=== PATIENT | female | born 1955 | race Two or more races ===

== ENCOUNTER 2022-05-14 19:08 | Inpatient (IN) | payer MEDICAID, OTHER ==
[~2022-05-14] VITALS: Ht 162.6 cm; Wt 68.9 kg
[2022-05-14 20:33] LABS: Basophils # (auto) 0.1 10 ^3/uL (0-0.2); Basophils % (auto) 0.6 % (0.0-2.0); Eosinophils # (auto) 0 10 ^3/uL (0-0.8); Eosinophils % (auto) 0.3 % (0.0-7.0); Hematocrit 43.3 % (36.0-46.0); Hemoglobin 14.5 g/dL (12.2-16.2); Lymphocytes # (auto) 1.5 10 ^3/uL (0.4-5.4); Lymphocytes % (auto) 16.5 % (10.0-50.0); Mean Corpuscular Hemoglobin 31.5 pg (28.0-32.0); Mean Corpuscular Hgb Conc. 33.5 g/dL (32.0-36.0); Mean Corpuscular Volume 93.9 fL (80.0-100.0); Monocytes # (auto) 0.5 10 ^3/uL (0-1.3); Monocytes % (auto) 5.2 % (0.0-12.0); Neutrophils % (auto) 77.4 % (37.0-80.0); Nucleated Red Blood Cells % 0.1 %; Red Blood Cells 4.62 10^6/uL (4.0-5.20); Red Cell Distribution Width 13.5 % (11.8-14.3); White Blood Cell 9.1 10^3/uL (4.4-10.8)
[2022-05-14 20:55] LABS: Albumin 3.9 g/dL (3.4-5.0); BUN/Creatinine Ratio 22.6; Calcium 9.2 mg/dL (8.5-10.1); Magnesium 2.4 mg/dL (1.6-2.6); Potassium 4.1 mmol/L (3.5-5.1)
[2022-05-14 20:58] LABS: Bilirubin, Total 0.4 mg/dL (0.2-1.0)
[2022-05-14] MEDS ORDERED: ASPirin 81 mg TAB PO ONE (22:15)
[2022-05-14] MEDS ORDERED: LISINOPRIL 10 MG TAB PO ONE (23:30)
[2022-05-14] MEDS ORDERED: MORPHINE SULFATE INJ 2 MG/ml SYRG IV PRN (23:30)
[2022-05-14] MEDS ORDERED: TEMAZEPAM 15 MG CAP PO PRN (23:30)
[2022-05-14] MEDS ORDERED: NITROGLYCERIN 0.4 MG SL TAB SL PRN (23:30)
[2022-05-14] MEDS ORDERED: ONDANSETRON HCL 4 MG/2 ML VIAL IV PRN (23:30)
[2022-05-14] MEDS ORDERED: ACETAMINOPHEN 325 MG TAB PO PRN (23:30)
[2022-05-14] MEDS ORDERED: ENOXAPARIN SOD 100 MG/1 ML SYRINGE SC ONE (23:30)
[2022-05-15 06:51] LABS: Basophils # (auto) 0.1 10 ^3/uL (0-0.2); Basophils % (auto) 0.7 % (0.0-2.0); Eosinophils # (auto) 0.1 10 ^3/uL (0-0.8); Eosinophils % (auto) 1.3 % (0.0-7.0); Hematocrit 41.5 % (36.0-46.0); Hemoglobin 14.2 g/dL (12.2-16.2); Lymphocytes # (auto) 2.4 10 ^3/uL (0.4-5.4); Lymphocytes % (auto) 33.5 % (10.0-50.0); Mean Corpuscular Hemoglobin 32.3 pg (28.0-32.0); Mean Corpuscular Hgb Conc. 34.2 g/dL (32.0-36.0); Mean Corpuscular Volume 94.4 fL (80.0-100.0); Monocytes # (auto) 0.5 10 ^3/uL (0-1.3); Monocytes % (auto) 6.6 % (0.0-12.0); Neutrophils # (auto) 4.2 10 ^3/uL (1.6-8.6); Neutrophils % (auto) 57.9 % (37.0-80.0); Nucleated Red Blood Cells % 0.1 %; Red Cell Distribution Width 13.7 % (11.8-14.3); White Blood Cell 7.3 10^3/uL (4.4-10.8)
[2022-05-15 07:07] LABS: Calcium 9.6 mg/dL (8.5-10.1); Potassium 3.8 mmol/L (3.5-5.1)
[2022-05-15] MEDS ORDERED: ENOXAPARIN SOD 40 MG/0.4 ML SYRINGE SC SCH (10:00)
[2022-05-15] MEDS ORDERED: CARVEDILOL 12.5 MG TAB PO ONE (11:00)
[2022-05-15] MEDS: LISINOPRIL 10 MG TAB PO SCH (11:05)
[2022-05-15] MEDS: ASPirin 81 mg TAB PO SCH (11:05)
[2022-05-15] MEDS: PANTOPRAZOLE 40 MG TAB PO SCH (11:05)
[2022-05-15] MEDS ORDERED: NICOTINE 14 MG/24HR TOPICAL PATCH TD ONE (11:15)
[2022-05-15] MEDS ORDERED: ENOXAPARIN SOD 30 MG/0.3 ML SYRINGE SC ONE (11:30)
[2022-05-15 11:33] LABS: Cholesterol 164 mg/dL (< 200); HDL Cholesterol 48 mg/dL (40-59); LDL Cholesterol 99 mg/dL (< 100); Triglycerides 133 mg/dL (< 150)
[2022-05-15 16:55] VITALS: BP 143/77
[2022-05-15 17:02] VITALS: BP 132/94
[2022-05-15 22:00] VITALS: BP 145/91
[2022-05-15] MEDS ORDERED: ATORVASTATIN 20 MG TAB PO SCH (22:00)
[2022-05-15] MEDS: ATORVASTATIN 20 MG TAB PO SCH (22:07)
[2022-05-15] MEDS: ENOXAPARIN SOD 80 MG/0.8ML SYRINGE SC SCH (22:08)
[2022-05-15] MEDS: CARVEDILOL 12.5 MG TAB PO SCH (22:08)
[2022-05-16] VITALS (9 sets, daily range): BP systolic 121–138; BP diastolic 59–75
[2022-05-16 06:25] LABS: BUN/Creatinine Ratio 15.1; Calcium 9.9 mg/dL (8.5-10.1); Potassium 4.1 mmol/L (3.5-5.1)
[2022-05-16 06:44] LABS: Basophils # (auto) 0.1 10 ^3/uL (0-0.2); Basophils % (auto) 1.1 % (0.0-2.0); Eosinophils # (auto) 0.1 10 ^3/uL (0-0.8); Eosinophils % (auto) 1.2 % (0.0-7.0); Hematocrit 44.7 % (36.0-46.0); Hemoglobin 15.2 g/dL (12.2-16.2); Lymphocytes # (auto) 2.6 10 ^3/uL (0.4-5.4); Lymphocytes % (auto) 32.4 % (10.0-50.0); Mean Corpuscular Hemoglobin 32.1 pg (28.0-32.0); Mean Corpuscular Volume 94.5 fL (80.0-100.0); Monocytes # (auto) 0.6 10 ^3/uL (0-1.3); Monocytes % (auto) 6.9 % (0.0-12.0); Neutrophils # (auto) 4.7 10 ^3/uL (1.6-8.6); Neutrophils % (auto) 58.4 % (37.0-80.0); Nucleated Red Blood Cells % 0.2 %; Red Blood Cells 4.73 10^6/uL (4.0-5.20); Red Cell Distribution Width 13.5 % (11.8-14.3); White Blood Cell 8.1 10^3/uL (4.4-10.8)
[2022-05-16 07:23] LABS: INR 0.99 (0.9-1.15); Partial Thromboplastin Time 32.2 sec (23.6-33.0)
[2022-05-16] MEDS: ASPirin 81 mg TAB PO SCH (09:18)
[2022-05-16] MEDS: LISINOPRIL 10 MG TAB PO SCH (09:20)
[2022-05-16] MEDS: CARVEDILOL 12.5 MG TAB PO SCH ×2 (09:20→22:45)
[2022-05-16] MEDS: PANTOPRAZOLE 40 MG TAB PO SCH (09:21)
[2022-05-16] MEDS: NICOTINE 14 MG/24HR TOPICAL PATCH TD SCH (09:22)
[2022-05-16] MEDS: ENOXAPARIN SOD 80 MG/0.8ML SYRINGE SC SCH (09:24)
[2022-05-16] MEDS ORDERED: VERAPAMIL 2.5MG/ML INJ 2ML VIAL IV ONE (11:01)
[2022-05-16] MEDS ORDERED: fentaNYL CITRATE 100 MCG/2 ML VL ONE (11:01)
[2022-05-16] MEDS ORDERED: ANGIOMAX 250 MG VIAL IV ONE (11:01)
[2022-05-16] MEDS ORDERED: HEPARIN SODIUM (PORCINE) 5000 UNITS/ML 1ML VIAL ONE (11:01)
[2022-05-16] MEDS ORDERED: LIDOCAINE 2%HCL (LOCAL ANESTH.) INJ 10ml MDV ONE (11:02)
[2022-05-16] MEDS ORDERED: SODIUM CHL 0.9% 50 ML ONE (11:02)
[2022-05-16] MEDS ORDERED: MIDAZOLAM HCL 2MG/2ML 2ml VIAL (1mg/ml) ONE (11:02)
[2022-05-16] MEDS ORDERED: IODIXANOL 320MG/ML 100ML BTL IV ONE ×2 (11:42→12:38)
[2022-05-16] MEDS ORDERED: ATROPINE SULF 1 MG/10ml SYR ONE (12:13)
[2022-05-16] MEDS ORDERED: CLOPIDOGREL 300 MG TAB ONE (12:40)
[2022-05-16] MEDS: ATORVASTATIN 20 MG TAB PO SCH (22:44)
[2022-05-17 04:49] VITALS: BP 149/53
[2022-05-17 05:55] LABS: Basophils # (auto) 0 10 ^3/uL (0-0.2); Basophils % (auto) 0.3 % (0.0-2.0); Eosinophils # (auto) 0 10 ^3/uL (0-0.8); Eosinophils % (auto) 0.6 % (0.0-7.0); Hematocrit 41.3 % (36.0-46.0); Hemoglobin 13.9 g/dL (12.2-16.2); Lymphocytes # (auto) 1.9 10 ^3/uL (0.4-5.4); Lymphocytes % (auto) 23.7 % (10.0-50.0); Mean Corpuscular Hemoglobin 31.7 pg (28.0-32.0); Mean Corpuscular Hgb Conc. 33.8 g/dL (32.0-36.0); Mean Corpuscular Volume 93.9 fL (80.0-100.0); Monocytes # (auto) 0.6 10 ^3/uL (0-1.3); Monocytes % (auto) 7.6 % (0.0-12.0); Neutrophils # (auto) 5.5 10 ^3/uL (1.6-8.6); Neutrophils % (auto) 67.8 % (37.0-80.0); Nucleated Red Blood Cells % 0.1 %; Red Cell Distribution Width 13.3 % (11.8-14.3); White Blood Cell 8.2 10^3/uL (4.4-10.8)
[2022-05-17 06:15] LABS: BUN/Creatinine Ratio 24.6; Calcium 9.4 mg/dL (8.5-10.1)
[2022-05-17 08:30] VITALS: BP 134/58
[2022-05-17] MEDS: LISINOPRIL 10 MG TAB PO SCH (09:44)
[2022-05-17] MEDS: CLOPIDOGREL BISULFATE 75 MG TAB PO SCH (09:45)
[2022-05-17] MEDS: PANTOPRAZOLE 40 MG TAB PO SCH (09:46)
[2022-05-17] MEDS: ASPirin 81 mg TAB PO SCH (09:46)
[2022-05-17] MEDS: NICOTINE 14 MG/24HR TOPICAL PATCH TD SCH (09:47)
[2022-05-17] MEDS: CARVEDILOL 12.5 MG TAB PO SCH ×2 (09:50→22:22)
[2022-05-17 12:38] VITALS: BP 102/62
[2022-05-17 16:46] VITALS: BP 139/62
[2022-05-17 22:00] VITALS: BP 139/57
[2022-05-17] MEDS: ATORVASTATIN 20 MG TAB PO SCH (22:19)
[2022-05-18 05:49] VITALS: BP 118/61
[2022-05-18 07:50] VITALS: BP 119/66
[2022-05-18] MEDS: PANTOPRAZOLE 40 MG TAB PO SCH (09:27)
[2022-05-18] MEDS: CLOPIDOGREL BISULFATE 75 MG TAB PO SCH (09:27)
[2022-05-18] MEDS: CARVEDILOL 12.5 MG TAB PO SCH (09:27)
[2022-05-18] MEDS: ASPirin 81 mg TAB PO SCH (09:27)
[2022-05-18] MEDS: NICOTINE 14 MG/24HR TOPICAL PATCH TD SCH (09:28)
[2022-05-18] MEDS ORDERED: LISINOPRIL 5 MG TAB PO SCH (10:00)
[2022-05-18 11:55] VITALS: BP 117/58
[2022-05-18] MEDS ORDERED: CLOP75TA70 PO (15:55)
[2022-05-18] MEDS ORDERED: PANT40T PO (15:55)
[2022-05-18] MEDS ORDERED: LISI-275 PO (15:55)
[2022-05-18] MEDS ORDERED: CAR125T PO (15:55)
[2022-05-18] MEDS ORDERED: ASPI-325 PO (15:55)
[2022-05-18] MEDS ORDERED: ATOR20TA50 PO (15:55)
[2022-05-18] MEDS ORDERED: NICO14DI9 TD (15:55)
== END 2022-05-18 17:30 | disposition home or self-care (01) | DRG 174 ==
LOC: ER 19:08 → EDSEX 19:08 → TELE 23:21 → TELE-WESTW 05-15 15:13
PROVIDERS: ADMIT Nurse Practitioner; ATTEND Internal Medicine Pulmonary Disease
PROC: 027135Z Dilation of Coronary Artery, Two Arteries with Two Drug-eluting Intraluminal Devices, Percutaneous Approach (ICD-10-PCS; principal; 2022-05-16)
PROC: 02C03ZZ Extirpation of Matter from Coronary Artery, One Artery, Percutaneous Approach (ICD-10-PCS; 2022-05-16)
PROC: B240ZZ3 Ultrasonography of Single Coronary Artery, Intravascular (ICD-10-PCS; 2022-05-16)
PROC: 4A023N7 Measurement of Cardiac Sampling and Pressure, Left Heart, Percutaneous Approach (ICD-10-PCS; 2022-05-16)
PROC: B211YZZ Fluoroscopy of Multiple Coronary Arteries using Other Contrast (ICD-10-PCS; 2022-05-16)
PROC: B215YZZ Fluoroscopy of Left Heart using Other Contrast (ICD-10-PCS; 2022-05-16)
DX: I21.4 Non-ST elevation (NSTEMI) myocardial infarction (principal); I50.21 Acute systolic (congestive) heart failure; I47.1 Supraventricular tachycardia; F17.210 Nicotine dependence, cigarettes, uncomplicated; I11.0 Hypertensive heart disease with heart failure; I25.10 Atherosclerotic heart disease of native coronary artery without angina pectoris; I25.5 Ischemic cardiomyopathy; Z20.822 Contact with and (suspected) exposure to COVID-19
CPT/HCPCS: 36415; 71045; 80048; 80053; 80061; 83735; 83880; 84443; 84484; 85025; 85379; 85610; 85730; 92928; 92933; 92978; 93005; 93306; 93458; 96372; 99152; 99153; C1874; G0378; J2001; J2250; Q9967